=== PATIENT | female | born 1935 | race Hispanic/Latino ===

== ENCOUNTER 2017-01-02 10:13 | Emergency (ER) | payer MEDICARE ==
[2017-01-02 10:18] VITALS: BP 131/63; PULSE 63; RESP 17; TEMP 98; O2SAT 97; BMI 25.7
[2017-01-02] MEDS ORDERED: Bupivacaine HCl 0.25% PF (10 ml) Inj INFIL STA (10:59)
--- NOTE | 2017-01-02 10:59 | C.PDOC ---
History Of Present Illness 81 yr old female presents to the ER s/p slipping and falling at home, injuring her left hand, 4th finger. Patient reports of a laceration. Patient denies LOC, chest pain, SOB, nausea, vomiting, back pain, weakness or numbness. Time Seen by Provider: 01/02/17 10:56 Chief Complaint (Nursing): Upper Extremity Problem/Injury History Per: Patient History/Exam Limitations: no limitations Onset/Duration Of Symptoms: Sudden Onset ([facility] [employer]ESS[employer]) Current Symptoms Are (Timing): Still Present Past Medical History Reviewed: Historical Data, Nursing Documentation, Vital Signs Vital Signs: Last Vital Signs Temp 98.0 F 01/02/17 10:18 Pulse 63 01/02/17 10:18 Resp 17 01/02/17 10:18 BP 131/63 01/02/17 10:18 Pulse Ox 97 01/02/17 12:30 - Medical History PMH: HTN, Hypercholesterolemia Surgical History: Coronary Stent - [facility] Procedures CLOSURE SKIN & SUBCUTANEOUS NEC (04/12/15) TETANUS TOXOID ADMINIST (04/12/15) Family History: States: No Known Family Hx - Social History Hx Tobacco Use: No Hx Alcohol Use: No Hx Substance Use: No - Immunization History Hx Tetanus Toxoid Vaccination: Yes Hx Influenza Vaccination: Yes Review Of Systems Except As Marked, All Systems Reviewed And Found Negative. Cardiovascular: Negative for: Chest Pain Respiratory: Negative for: Shortness of Breath Gastrointestinal: Negative for: Nausea, Vomiting Musculoskeletal: Positive for: Other ((+) Left hand, 4th finer laceration. ). Negative for: Back Pain Neurological: Negative for: Weakness, Numbness Physical Exam - Physical Exam Appears: Well, Non-toxic, No Acute Distress Oral Mucosa: Moist Extremity: Normal ROM, No Swelling, Other ((+) Left hand, 4th digit, 2cm laceration to the mid phalanx with ring inplace proximately.) Neurological/Psych: Oriented x3, Normal Speech, Normal Motor ED Course And Treatment O2 Sat by Pulse Oximetry: 97 Progress Note: Digital block was placed, the ring was removed and given to pt' s daughter. Laceration - Laceration Repair Left Hand, 4th Finger Wound Length (In cm): 2 Description Of Wound: Linear Wound Cleansed With: Betadine Anesthesia: Bupivicaine 0.25% Wound Examination: Irrigated With Saline, No FB With Wound Exploration, No Tendon Injury With Wound Exploration Wound Closure: Suture (6) Suture Technique And Material Used: Nylon (5-0) Wound Complexity: Simple Disposition - Disposition Disposition: HOME/ ROUTINE Disposition Time: 11:54 Condition: GOOD Additional Instructions: Sutures out in 10 days Instructions: Care For Your Stitches (ED), Laceration (ED) - Clinical Impression Clinical Impression: Finger laceration - Scribe Statement The provider has reviewed the documentation as recorded by the Trevon Ferguson Provider Attestation: All medical record entries made by the Trevon were at my direction and personally dictated by me. I have reviewed the chart and agree that the record accurately reflects my personal performance of the history, physical exam, medical decision making, and the department course for this patient. I have also personally directed, reviewed, and agree with the discharge instructions and disposition.
[2017-01-02] MEDS ORDERED: Bacitracin 500 Units/gm Oint Foilpak UD ONE (11:44)
== END 2017-01-02 12:10 | disposition home or self-care (01) ==
LOC: C.ER 10:13
DX: S61.215A Laceration without foreign body of left ring finger without damage to nail, initial encounter (principal); W01.0XXA Fall on same level from slipping, tripping and stumbling without subsequent striking against object, initial encounter; Y92.009 Unspecified place in unspecified non-institutional (private) residence as the place of occurrence of the external cause